=== PATIENT | male | born 1990 | race Caucasian/White ===

== ENCOUNTER → 2021-12-21 | Outpatient (CLI) | payer OTHER ==
[~2021-12-21] MED LIST: ISOVUE-300 61% 50ML VIAL ONE; LIDOCAINE 1% MDV 20ML VIAL ONE; methylPREDNISolone SUSP 40MG/ML 1ML VIAL (DEPO MEDROL) ONE
== END ==
LOC: M PLAIMG 12:37
PROVIDERS: ATTEND Physician Assistant Surgical
DX: M48.062 Spinal stenosis, lumbar region with neurogenic claudication (principal)
CPT/HCPCS: 20610; 76000; J1030